=== PATIENT | female | born 1970 | race African-American/Black ===

== ENCOUNTER 2020-08-12 23:18 | Emergency (ER) | payer BC ==
[~2020-08-12] VITALS: Ht 170.2 cm; Wt 73.0 kg
[2020-08-12] MEDS ORDERED: KETOROLAC 30MG/ML VIAL IV STA (23:52)
[2020-08-13] MEDS ORDERED: SODIUM CHLORIDE 0.9% 1,000 ML IV ONE
[2020-08-13 00:51] LABS: BASOPHILS % 0.4 % (0.0-2.0); EOSINOPHILS % 1.3 % (0.0-5.0); HEMATOCRIT. 40.1 % (36.0-48.0); HEMOGLOBIN. 13.4 g/dL (12.0-16.0); LYMPHOCYTES % 17.8 % (20.0-50.0); MEAN CORPUSCULAR HEMOGLOBIN 28.2 pg (28.0-32.0); MEAN CORPUSCULAR VOLUME 84.3 fL (81.0-99.0); MEAN PLATELET VOLUME 8.7 fl (7.4-10.4); MONOCYTES % 4.3 % (2.0-8.0); NEUTROPHILS % 76.2 % (40.0-76.0); PLATELET 320 x1000/uL (130-400); RED BLOOD CELL COUNT 4.76 mill/uL (4.2-5.4); RED CELL DISTRIBUTION WIDTH 14.7 % (11.6-14.6)
[2020-08-13 01:01] LABS: CHLORIDE 105 mEq/L (98-107)
[2020-08-13 01:09] LABS: HCG SCREEN NEGATIVE
[2020-08-13] MEDS ORDERED: IBUP-2029 MT (02:36)
[2020-08-13 02:50] VITALS: BP 142/82
== END 2020-08-13 03:00 | disposition home or self-care (01) ==
LOC: ER 23:18
DX: N83.201 Unspecified ovarian cyst, right side (principal); R03.0 Elevated blood-pressure reading, without diagnosis of hypertension
CPT/HCPCS: 36415; 76830; 76856; 80053; 83605; 83690; 84703; 85025; 93005; 96361; 96374; 99285; J1885; J7030